=== PATIENT | female | born 1945 | race Caucasian/White ===

== ENCOUNTER 2019-08-15 15:52 | Outpatient (CLI) | payer MEDICAID, MEDICARE ==
[2019-12-13] MEDS ORDERED: PENT400T12 PO (17:22)
[2019-12-15] MEDS ORDERED: FERR325T18 PO (16:12)
== END 2019-08-15 23:59 | disposition home or self-care (01) ==
LOC: CFH 15:52
PROVIDERS: ATTEND Nurse Practitioner Family
DX: K62.7 Radiation proctitis (principal)
CPT/HCPCS: 71046

== ENCOUNTER 2020-01-18 06:38 | Day surgery (SDC) | payer MEDICARE ==
[~2020-01-18] VITALS: Ht 162.6 cm; Wt 44.0 kg
[~2020-01-18 06:38] MED LIST: FERR325T18 PO; PENT400T12 PO
[2020-01-18] MEDS ORDERED: LACTATED RINGERS 1,000 ML IV SCH (07:15)
[2020-01-18] MEDS ORDERED: CHLORHEXIDINE 15 ML UDC MM STA (07:17)
[2020-01-18 07:48] VITALS: BP 105/61
[2020-01-18] MEDS ORDERED: ACETAMINOPHEN 325 MG TABLET PO PRN (08:00)
[2020-01-18] MEDS ORDERED: OXYcodone 5 MG/5 ML ORAL.SOL UDC PO PRN (08:00)
[2020-01-18] MEDS ORDERED: ONDANSETRON 2MG/ML, 2ML IVPush PRN (08:00)
[2020-01-18] MEDS ORDERED: PHENYLEPHRINE 10 MG/ML ONE (08:51)
[2020-01-18] MEDS ORDERED: PROPOFOL 10 MG/ML, 20ML ONE (09:02)
[2020-01-18] MEDS ORDERED: ACETAMINOPHEN 650 MG/20.3 ML UDC ONE (10:00)
[2020-01-18] MEDS ORDERED: OXYcodone 5 MG/5 ML ORAL.SOL UDC ONE (10:00)
== END 2020-01-18 11:45 | disposition home or self-care (01) ==
LOC: OUT 06:38
PROVIDERS: ATTEND Internal Medicine Gastroenterology
DX: K31.811 Angiodysplasia of stomach and duodenum with bleeding (principal); K62.7 Radiation proctitis; K62.1 Rectal polyp; D50.0 Iron deficiency anemia secondary to blood loss (chronic); Z87.891 Personal history of nicotine dependence; Z85.41 Personal history of malignant neoplasm of cervix uteri; Z92.21 Personal history of antineoplastic chemotherapy
CPT/HCPCS: 45331; 45341; 45346; 88305; 93005; J2370; J2704; J7120